=== PATIENT | female | born 1940 | race Caucasian/White ===

== ENCOUNTER 2017-05-17 13:35 | Emergency (ER) | payer OTHER ==
[2017-05-17 14:08] VITALS: BP 158/74; PULSE 79; RESP 20; TEMP 98.6; O2SAT 96
--- NOTE | 2017-05-17 15:25 | C.PDOC ---
History Of Present Illness 76yo female, presents to the ED for a medication refill. Patient reports she has no physical complaints at present. She states she is originally from [place] and has not been able to go back for a follow up with her PCP. Time Seen by Provider: 05/17/17 14:10 Chief Complaint (Nursing): Med Refill History Per: Patient History/Exam Limitations: no limitations Past Medical History Reviewed: Historical Data, Nursing Documentation, Vital Signs Vital Signs: Last Vital Signs Temp 98.6 F 05/17/17 14:05 Pulse 79 05/17/17 14:05 Resp 20 05/17/17 14:05 BP 158/74 H 05/17/17 14:05 Pulse Ox 96 05/17/17 15:27 - Medical History PMH: Arthritis, Diabetes, Kidney Stones Surgical History: No Surg Hx Family History: States: No Known Family Hx, Unknown Family Hx - Social History Hx Tobacco Use: No Hx Alcohol Use: No Hx Substance Use: No - Immunization History Hx Tetanus Toxoid Vaccination: No Hx Influenza Vaccination: No Hx Pneumococcal Vaccination: Yes (NEEDS AN UPDATE THIS YEAR) Review Of Systems Constitutional: Positive for: Other (patient requesting medication refill). Negative for: Fever Cardiovascular: Negative for: Chest Pain Respiratory: Negative for: Shortness of Breath Gastrointestinal: Negative for: Abdominal Pain Physical Exam - Physical Exam Appears: Non-toxic, No Acute Distress Skin: Warm, Dry Eye(s): bilateral: Normal Inspection Neck: Normal Cardiovascular: Rhythm Regular Respiratory: Normal Breath Sounds, No Wheezing Neurological/Psych: Oriented x3 ED Course And Treatment O2 Sat by Pulse Oximetry: 96 (RA) Pulse Ox Interpretation: Normal Medical Decision Making Medical Decision Making: Impression: 76yo female presents for medication refill Plan: -- Pt to be given prescriptions and informed to follow up at clinic for further care. Disposition - Disposition [facility]errals: [facility] [Outside] [facility] [Outside] Disposition: HOME/ ROUTINE Disposition Time: 14:40 Condition: GOOD Additional Instructions: Thank you for letting us take care of you today. Your provider was Dr. Devries. You were treated for a medication refill. The emergency medical care you received today was directed at your acute symptoms. If you were prescribed any medication, please fill it and take as directed. It may take several days for your symptoms to resolve. Return to the Emergency Department if your symptoms worsen, do not improve, or if you have any other problems. Please contact your doctor or call one of the physicians/clinics you have been referred to that are listed on the Patient Visit Information form that is included in your discharge packet. Bring any paperwork you were given at discharge with you along with any medications you are taking to your follow up visit. Our treatment cannot replace ongoing medical care by a primary care provider (PCP) outside of the emergency department. Thank you for allowing the [facility] team to be part of your care today. Follow up in the clinic in 2-3 days for re-evaluation and further management. Sandy por dejarnos cuidar de usted hoy. Hall proveedor fue el Dr. Devries. Usted recibi tratamiento para recargar medicamentos. La atencin mdica de emergencia que recibi hoy fue dirigida a magalis sntomas agudos. Si le recetaron algn medicamento, llvelo y tome jacob se le indique. Puede gloria varios reynolds para que magalis sntomas se resuelvan. Vuelva al Departamento de Emergencias si magalis sntomas empeoran, no mejoran, o si tiene otros problemas. Comunquese con hall mdico o llame a elly de los mdicos / clnicas a los que miles sido referido y que se enumeran en el formulario Informacin de la visita al paciente que se incluye en hall paquete de rosie. Traiga todo el papeleo que le dieron al rosie con usted, junto con los medicamentos que est tomando a hall visita de seguimiento. Nuestro tratamiento no puede reemplazar la atencin m dica continua por un proveedor de atencin primaria (PCP) fuera del departamento de emergencia. Sandy por permitir que el equipo de [facility] forme parte de hall atenci n hoy. Seguimiento en la clnica en 2-3 reynolds para re-evaluacin y manejo adicional. Prescriptions: Leflunomide [Arava] 20 mg PO DAILY #14 tablet metFORMIN [glucOPHAGE] 500 mg PO BID #28 tab Naproxen 500 mg PO Q12 PRN #14 tab PRN Reason: Pain, Moderate (4-7) Omeprazole 40 mg PO DAILY #14 capsule.dr Forms: Gen Discharge Inst Scottish Print Language: NEPALI - Clinical Impression Clinical Impression: Review of medication - Scribe Statement The provider has reviewed the documentation as recorded by the Melissaiblaura Prasad All medical record entries made by the Melissaiblaura were at my direction and personally dictated by me. I have reviewed the chart and agree that the record accurately reflects my personal performance of the history, physical exam, medical decision making, and the department course for this patient. I have also personally directed, reviewed, and agree with the discharge instructions and disposition.
== END 2017-05-17 14:40 | disposition home or self-care (01) ==
LOC: C.ER 13:35
DX: Z76.0 Encounter for issue of repeat prescription (principal)